=== PATIENT | male | born 1990 | race Caucasian/White ===

== ENCOUNTER 2017-11-14 19:19 | Emergency (ER) | payer MEDICAID ==
[2017-11-14 19:35] VITALS: BP 136/87
[2017-11-14] MEDS ORDERED: CEPHALEXIN 500MG PREPACK#4 BTL TAKEHOME ONE (20:24)
[2017-11-14] MEDS ORDERED: SULFAMET/TMP DS PREPACK#2 BTL TAKEHOME ONE (20:24)
--- NOTE | 2017-11-14 20:25 | EDPHY ---
H & P Time Seen by Provider: 11/14/17 20:09 HPI/ROS: CHIEF COMPLAINT: Rash on arms trunk and legs HISTORY OF PRESENT ILLNESS: Patient is had this rash for 2-3 days. Pustules with central opening on chest arms and legs which look like previous MRSA. No lymphangitis and no fluctuance and no pus drainage. REVIEW OF SYSTEMS: No fever or chills PAST MEDICAL HISTORY: MRSA June of 2016, right ankle surgery Social history: No IV drug abuse General Appearance: [Alert and conversant, cooperative.] Multiple pustules on chest as well as hands and legs, no lymphangitis. No areas of surrounding cellulitis. No joint swelling, does not look septic or toxic. Emergency Department course/MDM: Likely skin areas of probable MRSA. Keflex and Bactrim. Warned at work he needs to cover up any exposed skin with lesions. Smoking Status: Heavy smoker Constitutional: Initial Vital Signs Temperature (C) 37.0 C 11/14/17 19:32 Heart Rate 98 11/14/17 19:32 Respiratory Rate 18 11/14/17 19:32 Blood Pressure 136/87 H 11/14/17 19:32 O2 Sat (%) 94 11/14/17 19:32 O2 Delivery Mode Room Air Allergies/Adverse Reactions: No Known Allergies Allergy (Unverified 11/14/17 19:35) Home Medications: Medication Instructions Recorded Cephalexin [Keflex] 500 mg PO QID #28 cap 11/14/17 Sulfamethox/Tmp 800/160 mg 1 tab PO BID@1000,2200 #20 tab 11/14/17 [Bactrim Ds] MDM/Departure - MDM Medications Given: Discontinued Medications Cephalexin (Keflex 500 Mg Prepack#4) 1 btl TAKEHOME EDNOW ONE PRN Reason: Protocol Stop: 11/14/17 20:25 Last Admin: 11/14/17 20:34 Dose: 1 btl Trimethoprim/Sulfamethoxazole (Bactrim Ds Prepack#2) 1 btl TAKEHOME EDNOW ONE Stop: 11/14/17 20:25 Last Admin: 11/14/17 20:34 Dose: 1 btl - Depart Disposition: Home, Routine, Self-Care Clinical Impression: MRSA cellulitis Condition: Good Instructions: Cephalexin (By mouth), Sulfamethoxazole/Trimethoprim (By mouth), MRSA (Methicillin-Resistant Staphylococcus Aureus) (ED) Additional Instructions: You can follow up at [facility] to discuss with them possible ways to decrease the likelihood of this in the future. Prescriptions: Cephalexin [Keflex] 500 mg PO QID #28 cap Sulfamethox/Tmp 800/160 mg [Bactrim Ds] 1 tab PO BID@1000,2200 #20 tab Referrals: [facility],. [Clinic] - As per Instructions
[2017-11-14 20:39] VITALS: PULSE 71; RESP 15; TEMP 98.1; O2SAT 95
== END 2017-11-14 20:41 | disposition home or self-care (01) ==
DX: L03.313 Cellulitis of chest wall (principal); L03.116 Cellulitis of left lower limb; L03.115 Cellulitis of right lower limb; L03.114 Cellulitis of left upper limb; L03.113 Cellulitis of right upper limb; L03.221 Cellulitis of neck; B95.62 Methicillin resistant Staphylococcus aureus infection as the cause of diseases classified elsewhere; F17.200 Nicotine dependence, unspecified, uncomplicated

== ENCOUNTER 2018-09-03 12:04 | Emergency (ER) | payer SELFPAY ==
[2018-09-03] MEDS ORDERED: TDAP ADULT 0.5 ML INJ (BOOSTRIX) IM ONE (13:42)
[2018-09-03] MEDS ORDERED: SULFAMETHOX/TMP 800/160 MG 1 TAB PO ONE (13:42)
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
[2018-09-03 14:24] VITALS: BP 116/75
== END 2018-09-03 14:23 | disposition home or self-care (01) ==
DX: T25.222A Burn of second degree of left foot, initial encounter (principal); L03.116 Cellulitis of left lower limb; X19.XXXA Contact with other heat and hot substances, initial encounter; Y92.9 Unspecified place or not applicable; Y93.9 Activity, unspecified; Y99.9 Unspecified external cause status